=== PATIENT | female | born 1960 | race Caucasian/White ===

== ENCOUNTER 2019-10-05 | Observation (INO) | payer MEDICARE ==
[~2019-10-05] MED LIST: ACETAZOLAMID250 MG PO; ASPIRIN LOW DOS81 M2 PO; BIOTIN5000 MC2 PO; CALCIUM500 M3 PO; COQ-10200 MG PO; CYANOCOBALAM IJ; DILAUDID 2MG2 MG/TA1 PO; DILAUDID4 MG PO; ELAVIL50 MG PO; FEOSOL65 MG PO; FLEXERIL PO; KEFLEX250 MG PO; LEXAPRO20 MG PO; MELATONIN10 M2 PO; MULTI ADULT GUM1 CHW PO; PHENERGAN25 MG/TAB PO; PRILOSEC20 MG PO; STOOL SOFTENER100 MG PO; SYNTHROID100 MCG PO; SYNTHROID112 MCG PO; VALIUM5 MG PO; VITAMIN D35000 UNIT PO
--- NOTE | 2019-10-05 14:31 | NUR ---
PATIENT TO ROOM VIA EMS AND PHYSICIAN AT [facility] FOR EVAL
--- NOTE | 2019-10-05 15:01 | NUR ---
PT STATES HER AND HER HAVE HAD FLU LIKE SYMPTOMS FOR 3 - 5 DAYS WITH POOR PO INTAKE, FEVERS, N/V DIARRHEA AND SORE THROAT. WENT TO WALK IN CLINIC TODAY AND WAS SENT OVER TO [place]
[2019-10-05 15:18] LABS: HEMATOCRIT 40.8 % (37.0-47.0); HEMOGLOBIN 13.9 g/dl (12.0-16.0); MEAN CELL VOLUME 90.3 fL CALC (80.0-100.0); MEAN CORPUSCULAR HGB 30.8 pG CALC (26.0-32.0); MEAN CORPUSCULAR HGB CONC 34.1 g/L CALC (32.0-36.0); RED BLOOD COUNT 4.52 mill/uL (4.20-5.60); RED CELL DISTRI WIDTH 12.6 % (11.5-15.5)
[2019-10-05 15:19] LABS: IMMATURE GRANULOCYTES 0.7 % (0.0-5.0); NEUT# 1.09 thou/uL (2.00-7.15)
--- NOTE | 2019-10-05 16:00 | NUR ---
[facility] PT TOLERATEING W/O INCIDENT, CALL THOMAS WITHIN REACH, AWARE OF PLANNED ADMISSION, WILL CONTINUE TO MONITOR.
[2019-10-05 16:02] LABS: BUN 10 mg/dL (7-17); BUN/CREATININE RATIO 20 (12-20 (CALC)); CARBON DIOXIDE 19 mmol/l (22-30); CHLORIDE 102 mmol/l (95-108); CREATININE 0.5 mg/dL (0.5-1.0); GFR > 60 ML/MIN (>=60 (CALC)); GFR FOR AFR.AMER. > 60 ML/MIN (>=60 (CALC)); POTASSIUM 3.6 mmol/l (3.5-5.1)
[2019-10-05 16:08] LABS: ANION GAP 15 (6-22 (CALC)); SODIUM 132 mmol/l (137-146)
--- NOTE | 2019-10-05 17:08 | NUR ---
SBAR PRINTED TO FLOOR
[2019-10-05] MEDS ORDERED: ELMIRON100 MG PO (17:50)
[2019-10-05] MEDS ORDERED: NABUMETONE500 MG PO (17:51)
[2019-10-05] MEDS ORDERED: TOVIAZ4 MG PO (17:51)
[2019-10-05] MEDS ORDERED: VITAMIN B CO PO (17:54)
[2019-10-05] MEDS ORDERED: ATENOLOL25 MG PO (17:55)
--- NOTE | 2019-10-05 18:02 | NUR ---
PT RESTING OFFERS NO NEW COMPLAINTS, CALL THOMAS WITHIN REACH
--- NOTE | 2019-10-05 19:05 | NUR ---
PT RESTING...STATES DOESN'T FEEL SO GOOD..."TROUBLE BREATHING." SAT 91% ON 2.5 LPM NAD. LUNGS DIMINISHED. RHONCHI. RESP CALLED.
--- NOTE | 2019-10-05 19:31 | NUR ---
RT AT BEDSIDE
--- NOTE | 2019-10-05 20:29 | NUR ---
REPORT TO TOM ALAMO.
--- NOTE | 2019-10-05 20:34 | NUR ---
TO FLOOR VIA STRETCHER TO ICU (M/S OVERFLOW)...PT WITH MASK FOR TRANSPORT. NC @ 4 LPM.
[2019-10-05 20:41] VITALS: BP 146/84
--- NOTE | 2019-10-05 20:41 | NUR ---
59 yr old white female admitted to icu 1 as medsurg tele overflow. c/o dizziness when moving head. transferred x3 assists to bed. bed weight obtained. admits n/v diarrhea for days. monitoring tech shows sinus rhythm hr 77. #20 rac saline lock. history obtained per pt & er record. oriented to room. fall, contact & reverse isolation initiated. mrsa swab sent to lab. requested supper tray. instructed pt if she was still nauseated or vomitted food & water would be removed. pt verbalized understanding.
[2019-10-05 20:46] VITALS: BP 146/84
[2019-10-05 21:38] LABS: URINE BILIRUBIN - DIPSTICK NEGATIVE (NEGATIVE); URINE BLOOD DIPSTICK SMALL (NEGATIVE); URINE COLOR YELLOW; URINE GLUCOSE - DIPSTICK NEGATIVE (NEGATIVE); URINE KETONE NEGATIVE (NEGATIVE); URINE LEUK ESTERASE NEGATIVE (Negative); URINE NITRITE - DIPSTICK POSITIVE (Negative); URINE PH 5.5 (4.5-8.0); URINE PROTEIN - DIPSTICK 100 mg/dL (NEG-TRACE); URINE SPECIFIC GRAVITY 1.025; URINE UROBILINOGEN - DIPSTICK 0.2 E.U./dL (0.2)
[2019-10-05 21:52] LABS: URINE CLARITY CLOUDY
[2019-10-05 21:53] LABS: URINE BACTERIA MANY hpf; URINE SQUAMOUS EPITHELIAL CELL FEW EPI/hpf (0-FEW)
--- NOTE | 2019-10-06 00:01 | NUR ---
eyes closed. no distress. youth nutritional monitor shows sinus rhythm hr 60.
--- NOTE | 2019-10-06 03:30 | NUR ---
up to bsc. era well.
--- NOTE | 2019-10-06 04:00 | NUR ---
surveillance system monitor shows sinus rhythm hr 62.
[2019-10-06 07:15] VITALS: BP 138/60
[2019-10-06 10:22] LABS: HEMATOCRIT 39.8 % (37.0-47.0); IMMATURE GRANULOCYTES 0.8 % (0.0-5.0); MEAN CELL VOLUME 92.8 fL CALC (80.0-100.0); MEAN CORPUSCULAR HGB 30.3 pG CALC (26.0-32.0); MEAN CORPUSCULAR HGB CONC 32.7 g/L CALC (32.0-36.0); NEUT# 0.99 thou/uL (2.00-7.15); RED BLOOD COUNT 4.29 mill/uL (4.20-5.60); RED CELL DISTRI WIDTH 12.7 % (11.5-15.5)
[2019-10-06 10:25] LABS: ALBUMIN 3.1 g/dL (3.2-5.0); ALKALINE PHOSPHATASE 157 u/l (38-126); ANION GAP 15 (6-22 (CALC)); BILIRUBIN, TOTAL 0.3 mg/dL (0.0-1.4); BUN 8 mg/dL (7-17); BUN/CREATININE RATIO 17 (12-20 (CALC)); CARBON DIOXIDE 20 mmol/l (22-30); CHLORIDE 103 mmol/l (95-108); CREATININE 0.5 mg/dL (0.5-1.0); GFR > 60 ML/MIN (>=60 (CALC)); GFR FOR AFR.AMER. > 60 ML/MIN (>=60 (CALC)); POTASSIUM 3.6 mmol/l (3.5-5.1); SODIUM 134 mmol/l (137-146); TOTAL PROTEIN 5.8 g/dL (6.3-8.2)
[2019-10-06 10:41] LABS: SGOT/AST 126 u/l (14-36)
[2019-10-06 11:44] VITALS: BP 141/69
--- NOTE | 2019-10-06 13:00 | NUR ---
PT VSS, NO S/S OF DISTRESS NOTED, FAMILY AT BEDSIDE, WILLL CONTINUE TO MONITOR.
--- NOTE | 2019-10-06 15:42 | NUR ---
PT IV ANTIBIOTIC INFUSING, RESTING COMFORTABLY, NO S/S OF DISTRESS NOTED, VSS, WILL CONTINUE TO MONITOR
[2019-10-06 16:43] VITALS: BP 134/59
--- NOTE | 2019-10-06 17:36 | NUR ---
VSS, NO S/S OF DISTRESS NOTED, MEDICATED PER EMAR, EATING DINNER, WILL CONTINUE TO MONITOR
[2019-10-06 18:00] VITALS: BP 120/63
--- NOTE | 2019-10-06 18:04 | NUR ---
PT DISCHARGED HOME, ESCORTED OUT VIA WHEELCHAIR, TAXI CALLED, PAPERWORK GIVEN, PT INDICATED UNDERSTANDING OF INSTRUCTIONS
--- NOTE | 2019-10-06 18:27 | NUR ---
PT RESTING IN BED, FAMILY AT BEDSIDE, VSS, NO S/S OF DISTRESS NOTED, PT MEDICATED FOR OAIN PER EMAR, WILL CONTINUE TO MONITOR
--- NOTE | 2019-10-06 19:05 | NUR ---
REPORT RECEIVED. PT ALERT AND ORIENTED, RESTING IN BED WITH EYES CLOSED. WAKES EASILY. NO APPARENT DISTRESS NOTED. 02 @2L/M. DISCUSSED POC. PT VERBALIZED UNDERSTANDING. CALL LIGHT WITHIN REACH. WILL CONTINUE TO MONITOR.
[2019-10-06 22:15] VITALS: BP 134/57
--- NOTE | 2019-10-06 23:15 | NUR ---
PT RESTING IN BED WITH EYES CLOSED. NO APPARENT DISTRESS NOTED. CALL LIGHT WITHIN REACH. WILL CONTINUE TO MONITOR.
[2019-10-07] VITALS (14 sets, daily range): BP systolic 105–141; BP diastolic 53–83
--- NOTE | 2019-10-07 03:27 | NUR ---
PT RESTING IN BED WITH EYES CLOSED. NO APPARENT DISTRESS NOTED. CALL LIGHT WITHIN REACH. WILL CONTINUE TO MONITOR.
[2019-10-07 05:55] LABS: ALBUMIN 3.3 g/dL (3.2-5.0); ALKALINE PHOSPHATASE 131 u/l (38-126); BUN 15 mg/dL (7-17); BUN/CREATININE RATIO 27 (12-20 (CALC)); CHLORIDE 108 mmol/l (95-108); CREATININE 0.6 mg/dL (0.5-1.0); GFR > 60 ML/MIN (>=60 (CALC)); GFR FOR AFR.AMER. > 60 ML/MIN (>=60 (CALC)); SGOT/AST 161 u/l (14-36); SODIUM 138 mmol/l (137-146); TOTAL PROTEIN 6.3 g/dL (6.3-8.2)
[2019-10-07 06:01] LABS: ANION GAP 21 (6-22 (CALC)); BILIRUBIN, TOTAL 0.6 mg/dL (0.0-1.4); CARBON DIOXIDE 14 mmol/l (22-30); POTASSIUM 4.6 mmol/l (3.5-5.1)
--- NOTE | 2019-10-07 06:01 | NUR ---
PT APPEARS TO BE SOB AND DISORIENTED. 02 SATS REGISTERING 35% TO 50%. ABG OBTAINED WITH 02 SAT 54%. PT PLACED ON NON-REBREATHER MASK BRINGING SATS UP TO 89% TO 90%. STAT CXR OBTAINED AND D-DIMER. DR. WETZEL NOTIFIED WITH RESULTS, ORDERS OBTAINED FOR BIPAP, CTA, HOLD IV FLUIDS, AND IV LASIX. WILL CONTINUE TO MONITOR.
[2019-10-07 06:10] LABS: HEMOGLOBIN 14.9 g/dl (12.0-16.0); IMMATURE GRANULOCYTES 0.8 % (0.0-5.0); MEAN CELL VOLUME 97.5 fL CALC (80.0-100.0); MEAN CORPUSCULAR HGB 30.5 pG CALC (26.0-32.0); MEAN CORPUSCULAR HGB CONC 31.3 g/L CALC (32.0-36.0); NEUT# 2.83 thou/uL (2.00-7.15); RED BLOOD COUNT 4.88 mill/uL (4.20-5.60); RED CELL DISTRI WIDTH 13.5 % (11.5-15.5)
[2019-10-07 06:18] LABS: HEMATOCRIT 47.6 % (37.0-47.0)
--- NOTE | 2019-10-07 07:30 | NUR ---
PATIENT TO XRAY FOR CTA VIA BED ON NON-REBREATHER ACCOMPANIED BY JOEY ROJO/CRIS AND JIMY OCONNOR/AYAKA.
--- NOTE | 2019-10-07 08:10 | NUR ---
UNABLE TO DO CTA D/T NEED FOR BETTER IV ACCESS. ATTEMPT TO OBTAIN NEW IV SITE IN XRAY UNSUCCESSFUL. PATIENT RETURNED TO ROOM AT THIS TIME AND BACK ON BIPAP 24/01 BY RT.
--- NOTE | 2019-10-07 08:15 | NUR ---
PATIENT RESTING IN SEMI-FOWLERS POSTION. ALERT AND ORIENTED. FOLLOWS COMMANDS, ANSWERS QUESTIONS APPROPRIATELY. RESP NON-LABORED. ON BIPAP AT THIS TIME-15/5. OS AT 86-89% BREATH SOUNDS DIMINISHED THROUGHOUT, COARSE AND WHEEZY. ABD SOFT WITH ACTIVE BOWEL SOUNDS X4. IV SITE IN RAC SITE BENIGN, DSG CDI. SALINE LOCK FLUSHED AND PATENT. LASIX 20 MG IVP GIVEN ORDERED. #16 FR GALLEGO CATHETER INSERTED USING STERILE TECHNIQUE-IMMEDIATELY DRAINING CLEAR RACHNA URINE. EXPLAINED TO PATIENT NEED FOR IV LASIX AND GALLEGO CATHETER FOR ACCURATE I&O, PATIENT VERBALIZES UNDERSTANDING OF TEACHING. GENERALIZED EDEMA PRESENT. PERIPHERAL PULSES PALPABLE. OFFERED TO CALL FAMILY TO UPDATE ON HER CONDITION PATIENT STATES NO SHE DID NOT WANT THEM CALLED AT THIS TIME. MONITOR SHOWS SR. CALL THOMAS IN REACH.
--- NOTE | 2019-10-07 08:22 | NUR ---
DISCUSSING PTS STATUS WITH MADELINE DELANEY.
--- NOTE | 2019-10-07 09:00 | NUR ---
VSS. O2 SAT 88-94% PATIENT DENIES DISCOMFORTS. DIURESING WELL FROM LASIX GIVEN EARLIER.
--- NOTE | 2019-10-07 10:00 | NUR ---
REPOSITONED IN BED WITH ASSIST. VSS. ASSISTED WITH TAKING PO FLUIDS.
--- NOTE | 2019-10-07 12:00 | NUR ---
DR WETZEL IN TO SEE PATIENT. PATIENT RESTING QUIETLY IN BED. REMAINS ON BIPAP. DENIES ANY DISCOMFORTS. VSS.
--- NOTE | 2019-10-07 13:00 | NUR ---
FAMILY VISTING. PATIENT TOLERATING BIPAP WELL.
--- NOTE | 2019-10-07 14:30 | NUR ---
INFOMRED Johnny MARTINEZ/WILDER OF LOSS OF IV ACCESS. MULTIPLE ATTEMPTS MADE BY NURSES TO RESTART HAVE BEEN UNSUCCESSFUL. IV MEDS CHANGED TO PO AT THIS TIME.
--- NOTE | 2019-10-07 15:00 | NUR ---
COMPLETE BED BATH AND LINENS CHANGED. PATIENT ASSISTS WITH CARE ABLE. MOVES SELF WELL IN BED. REMAINS ON BIPAP, MASK REMOVED ONLY BRIEFLY FOR PO FLUIDS. VSS.
--- NOTE | 2019-10-07 16:00 | NUR ---
PATIENT CHANGED TO HIGH FLOW NASAL CANNULA AT 15L BY Troy ROJO/CRIS.
--- NOTE | 2019-10-07 16:30 | NUR ---
PATIENT UNABLE TO MAINTAIN O2 SATS. ORDERS RECEIVED TO TRANSFER PATIENT TO [facility] UNDER THE CARE OF DR NAVAS WITH DR FLAHERTY PULMONOLOGY CONSULT. DISCUSSED WITH PATIENT AND SHE AGREES TO TRANSFER, CONSENT OBTAINED. PATIENT CALLED SPOUSE. JOEY ROJO/[employer]A COLUMN OPERATOR SPOKE WITH SPOUSE AND EXPLAINED TO HIM ABOUT NECESSITY OF TRANSFER.
--- NOTE | 2019-10-07 16:40 | NUR ---
SPOKE WITH EUGENIO NURSING DEAN OF FACULT[facility] AT [facility]. BED ASSIGNMENT GIVEN-ICU 250. FACE SHEET FAXED TO [phone].
--- NOTE | 2019-10-07 16:45 | NUR ---
CALL TO [facility] SPOKE WITH JEANNETTE. ADVISED PATIENT WOULDNEED CPAP FOR TRANSFER. ETA 1 HOUR.
--- NOTE | 2019-10-07 17:00 | NUR ---
PATIENT SPOUSE HERE, SUPPORT AND REASSURANCE PROVIDED TO PATIENT AND SPOUSE. PATIENT HOME MEDS, BRACELET, WRISTWATCH AND CELL PHONE SENT WITH SPOUSE. PATIENT KEPT HER EYEGLASSES AND BAG WITH A BRA AND PANTIES.
--- NOTE | 2019-10-07 17:55 | NUR ---
[facility] HERE TO TRANSPORT PATIENT. VSS. ON NRB FOR TRANSPORT.
--- NOTE | 2019-10-07 18:15 | NUR ---
PATIENT LEFT UNIT VIA STRETCHER ACCOMAPNIED BY [facility] TRANSPORT STAFF. CALL TO EUGENIO/RN NURSING MATTING PRESS TENDER WITH ETA OF PATIENT.
--- NOTE | 2019-10-07 18:20 | NUR ---
REPORT CALLED TO REAGAN/RUBBER FLAP CUTTER AT [facility]. [phone].
== END 2019-10-07 18:15 ==
PROVIDERS: Family Medicine; Internal Medicine; Nurse Practitioner Family; ADMIT Internal Medicine
PROC: 5A09357 Assistance with Respiratory Ventilation, Less than 24 Consecutive Hours, Continuous Positive Airway Pressure (ICD-10-PCS; principal; 2019-10-07)
DX: J10.00 Influenza due to other identified influenza virus with unspecified type of pneumonia (principal); D72.819 Decreased white blood cell count, unspecified; E87.1 Hypo-osmolality and hyponatremia; E89.0 Postprocedural hypothyroidism; R74.0 Nonspecific elevation of levels of transaminase and lactic acid dehydrogenase [LDH]; E78.5 Hyperlipidemia, unspecified; G89.4 Chronic pain syndrome; Z87.891 Personal history of nicotine dependence
CPT/HCPCS: J1650